=== PATIENT | female | born 1955 | race Caucasian/White ===

== ENCOUNTER 2025-01-02 16:33 | Outpatient (CLI) | payer MEDICARE, BC ==
--- NOTE | 2025-01-02 18:02 | RADIOLOGY REPORT ---
CLINICAL INDICATION: R/O ARTHRITIS RIGHT HAND TECHNIQUE: Bilateral DI HAND, COMPLETE (3VW MIN), DI HAND, COMPLETE (3VW MIN) Comparison: None FINDINGS/IMPRESSION: : There is no evidence of acute fracture or dislocation. Advanced diffuse degenerative changes and diffuse osteopenia bilaterally. Multiple bilateral coarse c alcifications throughout the hands. Differential considerations could include dystrophic calcificatio ns, metabolic disorder, CPPD or inflammatory arthropathy. Clinical correlation advised.
--- NOTE | 2025-01-02 18:02 | RADIOLOGY REPORT ---
CLINICAL INDICATION: R/O ARTHRITIS RIGHT HAND TECHNIQUE: Bilateral DI HAND, COMPLETE (3VW MIN) Comparison: None FINDINGS/IMPRESSION: : There is no evidence of acute fracture or dislocation. Advanced diffuse degenerative changes and diffuse osteopenia bilaterally. Multiple bilateral coarse c alcifications throughout the hands. Differential considerations could include dystrophic calcificatio ns, metabolic disorder, CPPD or inflammatory arthropathy. Clinical correlation advised.
== END 2025-01-02 23:59 | disposition home or self-care (01) ==
LOC: RAD 16:33
PROVIDERS: ATTEND Orthopaedic Surgery Hand Surgery
DX: M19.042 Primary osteoarthritis, left hand (principal); M85.842 Other specified disorders of bone density and structure, left hand; R22.31 Localized swelling, mass and lump, right upper limb; M19.041 Primary osteoarthritis, right hand; M85.841 Other specified disorders of bone density and structure, right hand
CPT/HCPCS: 73130